=== PATIENT | female | born 1975 | race Caucasian/White ===

== ENCOUNTER 2018-05-27 06:33 | Emergency (ER) | payer OTHER ==
[2018-05-27] MEDS ORDERED: NS 1,000 ML IV ONE ×2 (07:02→07:47)
[2018-05-27] MEDS ORDERED: HYDROmorphONE/DILAUDID 2 MG/ML INJ IVP ONE ×2 (07:03→07:12)
[2018-05-27] MEDS ORDERED: ONDANSETRON 4 MG/2 ML VIAL IVP ONE (07:03)
[2018-05-27 07:07] LABS: PLATELET COUNT 221 10^3/uL (150-400)
--- NOTE | 2018-05-27 07:17 | EDPHY ---
H & P Time Seen by Provider: 05/27/18 06:53 HPI/ROS: HPI Right flank pain, hot flashes. 43-year-old female by private vehicle with her . This patient reports that for the last 2 nights she has developed right-sided flank pain with radiation into her right abdomen. She describes the pain as sharp and cramping. She states the pain usually comes on at around 2:30 a.m.. She also reports some burning with urination and increased frequency with urination. Last menstrual. And did a few days ago. Prior abdominal surgeries include cholecystectomy. She also has a history of uterine polyps colonic polyps. She has had some nausea but no vomiting. Last meal was at 8:00 p.m. Last night. She also reports having some loose stools. No bloody or melenic stool. ROS: Constitutional: No fever, no chills. No weakness. Eyes: No discharge. No changes in vision. ENT: No sore throat. No nasal congestion or rhinorrhea. Respiratory: No cough. No shortness of breath. Cardiac: No chest pain, no palpitations. Gastrointestinal: As above, no vomiting, no diarrhea. Genitourinary: No hematuria. As above. Musculoskeletal: As above. No neck pain. No myalgias or arthralgias. Skin: No rashes. Neurological: No headache. No focal weakness or altered sensation. Past medical history: As above. No history of medication allergies. Social history: Nonsmoker. No alcohol. She is here with her . Physical Exam: General Appearance: Alert, she appears uncomfortable but not in distress. This patient is responding to questions appropriately and in full sentences. This patient appears well-hydrated and well-nourished. Eyes: Pupils equal and round no pallor or injection. No lid edema, erythema or injection. Respiratory: There are no retractions, lungs are clear to auscultation with good air movement bilaterally. Cardiovascular: Regular rate and rhythm. No murmur. Gastrointestinal: Abdomen is soft and nontender, no masses, bowel sounds normal. No focal tenderness at McBurney's point. No Salazar sign. Neurological: Motor sensory function is grossly intact. Cranial nerves are normal. Gait is normal. Skin: Warm and dry, no rashes. Musculoskeletal: Right-sided CVA tenderness on palpation. No left-sided CVA tenderness on palpation. Extremities are symmetrical. All joints range without pain or impingement. Psychiatric: No agitation. No depression. Database: EKG: Imaging: CT scan of abdomen and pelvis without contrast: Significant for a 5 mm right- sided distal ureteral stone with associated hydronephrosis and perinephric stranding/inflammation. Results were discussed with staff radiologist Dr. Matt Cunha. Procedures: Emergency department course: Triage vital signs reviewed and are unremarkable. She is afebrile. IV was placed. She was placed on a monitor. She was started on IV normal saline with 1-2 L to be given over the next 1-2 hours. For nausea and pain she was initially given 4 mg of IV Zofran and 0.5 mg of IV hydromorphone. Hydromorphone will be repeated as needed for pain control. Patient's presentation is consistent with a pyelonephritis, possibly a kidney stone. CT imaging will be obtained. She consents to emergency department workup. Toradol be considered for pain pending a normal creatinine. 7:45 a.m., patient re-evaluated. Her pain is improved. She will be given 30 mg of IV Toradol. Her creatinine is normal. She will be given 0.4 mg of oral Flomax. Results of CT scan discussed with her and her . Her hot flashes as well as her leukocytosis and white cells in her urine suggest possible infection/pyelonephritis. She will be given 750 mg of IV Levaquin. 9:05 a.m., the patient was re-evaluated, she is resting comfortably at this time. Her pain is well controlled and she states that she feels much better. Her vital signs were reviewed and are normal. She has finished her IV Levaquin. I discussed admission for observation. She does not want to be admitted. She feels comfortable going home with her son . I will prescribe her oral Levaquin as well as Flomax and Vicodin for pain. She can also start taking ibuprofen later tonight. I discussed urology follow-up. They live in [place]. Return to emergency department precautions were thoroughly reviewed with her. All of her questions were answered. The patient was discharged home in good condition with her . Differential Diagnosis: The differential diagnosis on this patient includes but is not limited to pyelonephritis, ureterolithiasis. Appendicitis, ovarian torsion, ectopic unlikely. This represents a partial list of diagnoses considered. These considerations are based on history, physical exam, past history, reassessment and diagnostic testing. Smoking Status: Never smoked Constitutional: Initial Vital Signs Temperature (C) 36.6 C 05/27/18 06:41 Heart Rate 51 L 05/27/18 06:41 Respiratory Rate 18 05/27/18 06:41 Blood Pressure 130/65 H 05/27/18 06:41 O2 Sat (%) 100 05/27/18 06:41 O2 Delivery Mode Room Air Allergies/Adverse Reactions: No Known Allergies Allergy (Unverified 05/27/18 06:44) Home Medications: Medication Instructions Recorded Docusate Sodium [Colace 100 MG (*)] 100 mg PO TID #20 cap 05/27/18 Hydrocodone/APAP 5/325 [[place] 1 - 2 tab PO Q4-6PRN PRN #14 tab 05/27/18 5/325 (*)] Ondansetron Odt [Zofran Odt 4 mg 4 mg PO Q4PRN PRN #10 tab 05/27/18 (*)] Tamsulosin HCl [Flomax 0.4 MG (*)] 0.4 mg PO DAILY #4 cap 05/27/18 levOFLOXACIN [levAQUIN (*)] 750 mg PO DAILY #7 tab 05/27/18 Medical Decision Making - Data Points Laboratory Results: Laboratory Results 05/27/18 06:53 05/27/18 06:53 05/27/18 05/27/18 05/27/18 06:53 06:53 06:45 WBC 14.08 10^3/uL H 10^3/uL (3.80-9.50) RBC 5.01 10^6/uL 10^6/uL (4.18-5.33) Hgb 16.3 g/dL g/dL (12.6-16.3) Hct 47.1 % H % (38.0-47.0) MCV 94.0 fL fL (81.5-99.8) MCH 32.5 pg pg (27.9-34.1) MCHC 34.6 g/dL g/dL (32.4-36.7) RDW 11.9 % % (11.5-15.2) Plt Count 221 10^3/uL 10^3/uL (150-400) MPV 10.8 fL fL (8.7-11.7) Neut % (Auto) 80.2 % H % (39.3-74.2) Lymph % (Auto) 12.6 % L % (15.0-45.0) [place] % (Auto) 5.5 % % (4.5-13.0) Eos % (Auto) 0.8 % % (0.6-7.6) Baso % (Auto) 0.4 % % (0.3-1.7) Nucleat RBC Rel Count 0.0 % % (0.0-0.2) Absolute Neuts (auto) 11.30 10^3/uL H 10^3/uL (1.70-6.50) Absolute Lymphs (auto) 1.78 10^3/uL 10^3/uL (1.00-3.00) Absolute Monos (auto) 0.77 10^3/uL 10^3/uL (0.30-0.80) Absolute Eos (auto) 0.11 10^3/uL 10^3/uL (0.03-0.40) Absolute Basos (auto) 0.05 10^3/uL 10^3/uL (0.02-0.10) Absolute Nucleated RBC 0.00 10^3/uL 10^3/uL (0-0.01) Immature Gran % 0.5 % % (0.0-1.1) Immature Gran # 0.07 10^3/uL 10^3/uL (0.00-0.10) Sodium 142 mEq/L mEq/L (135-145) Potassium 3.9 mEq/L mEq/L (3.3-5.0) Chloride 109 mEq/L mEq/L (97-110) Carbon Dioxide 22 mEq/l mEq/l (22-31) Anion Gap 11 mEq/L mEq/L (6-14) BUN 26 mg/dL H mg/dL (7-23) Creatinine 1.0 mg/dL mg/dL (0.6-1.0) Estimated GFR > 60 Glucose 112 mg/dL H mg/dL (70-100) Calcium 9.7 mg/dL mg/dL (8.5-10.4) Urine Color Urine Appearance Urine pH Ur Specific [place] Urine Protein Urine Ketones Urine Blood Urine Nitrate Urine Bilirubin Urine Urobilinogen Ur Leukocyte Esterase Urine RBC Urine WBC Ur Epithelial Cells Calcium Oxalate Crystal Urine Bacteria Urine Mucus Urine Glucose Urine Test NEGATIVE 05/27/18 06:45 WBC RBC Hgb Hct MCV MCH MCHC RDW Plt Count MPV Neut % (Auto) Lymph % (Auto) [place] % (Auto) Eos % (Auto) Baso % (Auto) Nucleat RBC Rel Count Absolute Neuts (auto) Absolute Lymphs (auto) Absolute Monos (auto) Absolute Eos (auto) Absolute Basos (auto) Absolute Nucleated RBC Immature Gran % Immature Gran # Sodium Potassium Chloride Carbon Dioxide Anion Gap BUN Creatinine Estimated GFR Glucose Calcium Urine Color YELLOW Urine Appearance MODERATELY TURBID Urine pH 5.0 (5.0-7.5) Ur Specific [place] 1.024 (1.002-1.030) Urine Protein NEGATIVE (NEGATIVE) Urine Ketones NEGATIVE (NEGATIVE) Urine Blood 2+ H (NEGATIVE) Urine Nitrate NEGATIVE (NEGATIVE) Urine Bilirubin NEGATIVE (NEGATIVE) Urine Urobilinogen NEGATIVE EU EU (0.2-1.0) Ur Leukocyte Esterase 1+ H (NEGATIVE) Urine RBC 50-182 /hpf H /hpf (0-3) Urine WBC 15-25 /hpf H /hpf (0-3) Ur Epithelial Cells 2+ /lpf H /lpf (NONE-1+) Calcium Oxalate Crystal PRESENT /hpf /hpf (NONE-1+) Urine Bacteria 1+ /hpf H /hpf (NONE SEEN) Urine Mucus 2+ /lpf H /lpf (NONE-1+) Urine Glucose NEGATIVE (NEGATIVE) Urine Test Medications Given: Levofloxacin/Dextrose (Levaquin 750 Mg (Premix)) 150 mls @ 100 mls/hr IV EDNOW ONE PRN Reason: Protocol Stop: 05/27/18 09:17 Last Admin: 05/27/18 07:59 Dose: 150 mls Discontinued Medications Hydromorphone HCl (Dilaudid) 0.5 mg IVP EDNOW ONE Stop: 05/27/18 07:04 Last Admin: 05/27/18 07:10 Dose: 0.5 mg Sodium Chloride (Ns) 1,000 mls @ 0 mls/hr IV ONCE ONE PRN Reason: Wide Open Stop: 05/27/18 07:03 Last Admin: 05/27/18 07:09 Dose: 1,000 mls Sodium Chloride (Ns) 1,000 mls @ 0 mls/hr IV EDNOW ONE; Wide Open PRN Reason: Protocol Stop: 05/27/18 07:48 Last Admin: 05/27/18 08:01 Dose: 1,000 mls Ketorolac Tromethamine (Toradol) 30 mg IVP EDNOW ONE Stop: 05/27/18 07:47 Last Admin: 05/27/18 08:00 Dose: 30 mg Ondansetron HCl (Zofran) 4 mg IVP EDNOW ONE Stop: 05/27/18 07:04 Last Admin: 05/27/18 07:09 Dose: 4 mg Tamsulosin HCl (Flomax) 0.4 mg PO EDNOW ONE Stop: 05/27/18 07:48 Last Admin: 05/27/18 08:01 Dose: 0.4 mg Departure - Departure Disposition: Home, Routine, Self-Care Clinical Impression: Right flank pain, Calculus of right kidney, Possible pyelonephritis Condition: Good Instructions: Kidney Stones (ED) Additional Instructions: Read and follow provided instructions. Follow-up with Urology, early this coming week for re-evaluation as discussed. Call the urology office at 8:30 a.m. On Tuesday morning for appointment time. Explain this is for an emergency department follow-up. Take medication as prescribed through entire course of treatment. Keep yourself well hydrated. Drink lots of fluids. Your antibiotic will be oral Levaquin. You will take 1 pill a day for the next 7 days. You can start taking ibuprofen tonight. Ibuprofen dosin mg every 6 hours with meals for the next 3 days only. Take only as needed for pain. Narcotic pain medication: 1-2 every 4-6 hours as needed for pain. Do not drive on this medication. Return to the emergency department for worsening symptoms or other serious concerns. Referrals: Andre Dixon MD [Primary Care Provider] - As per Instructions Barbara Chambers MD [Medical Doctor] - As per Instructions Prescriptions: Docusate Sodium [Colace 100 MG (*)] 100 mg PO TID #20 cap Hydrocodone/APAP 5/325 [[place] 5/325 (*)] 1 - 2 tab PO Q4-6PRN PRN #14 tab PRN Reason: Pain, Moderate levOFLOXACIN [levAQUIN (*)] 750 mg PO DAILY #7 tab Ondansetron Odt [Zofran Odt 4 mg (*)] 4 mg PO Q4PRN PRN #10 tab PRN Reason: For Nausea & Vomiting Tamsulosin HCl [Flomax 0.4 MG (*)] 0.4 mg PO DAILY #4 cap
[2018-05-27] MEDS ORDERED: KETOROLAC 30 MG/1 ML SDV IVP ONE (07:46)
[2018-05-27] MEDS ORDERED: TAMSULOSIN HCL 0.4 MG CAP PO ONE (07:47)
[2018-05-27 09:37] VITALS: BP 105/69
== END 2018-05-27 09:35 | disposition home or self-care (01) ==
DX: N13.2 Hydronephrosis with renal and ureteral calculous obstruction (principal); E86.9 Volume depletion, unspecified
CPT/HCPCS: 96374; J1170; J1885; J1956; J2405